=== PATIENT | female | born 1970 | race Caucasian/White ===

== ENCOUNTER → 2021-01-26 | Outpatient (CLI) | payer OTHER, BC ==
[~2021-01-26] MED LIST: ACET-789 PO; BLAC80CA PO; CALC-656 PO; DCS100C PO; DPH25C PO; ESCT10T PO; ESTR1TAB24 PO; FERR240T9 PO; FLT05NA16 NSEACH; HDR2T PO; IBP800T PO; Ibuprofen PO; LVT.112T PO; MAGN250T7 PO; RABE20TA PO
[2021-01-26 18:49] LABS: ABSOLUTE RETIC # 103 10e9/uL (24-90); RETICULOCYTE % 2.42 % (0.50-2.40)
[2021-01-26 18:51] LABS: EOSINOPHILS % (MANUAL) 1 %; LYMPHOCYTES % (MANUAL) 25 %; MONOCYTES % (MANUAL) 8 %; NEUTROPHILS % (MANUAL) 66 %; RBC MORPH NORMAL
== END ==
LOC: GIR 18:04
PROVIDERS: ATTEND Nurse Practitioner Family
DX: T63.301A Toxic effect of unspecified spider venom, accidental (unintentional), initial encounter (principal)
CPT/HCPCS: 85007; 85045; 85055